=== PATIENT | female | born 1950 | race Caucasian/White ===

== ENCOUNTER 2023-03-09 21:11 | Emergency (ER) | payer BC, MEDICARE, SELFPAY ==
[~2023-03-09] VITALS: Ht 175.3 cm; Wt 109.1 kg
[2023-03-10 00:41] LABS: BASO % 0.5 % (0.0-1.0); EOS # 0.3 10^3/uL (0.0-0.5); EOS % 2.9 % (0.0-3.0); HEMATOCRIT 39.9 % (36.0-47.0); HEMOGLOBIN 13.3 g/dl (12.0-15.5); LYMPH # 2.8 10^3/uL (1.5-5.0); LYMPH % 32.2 % (24.0-44.0); MEAN CORPUSCULAR HGB CONC 33.3 g/dl (32.0-36.5); MONO # 0.8 10^3/uL (0.0-0.8); MONO % 9.5 % (2.0-8.0); NEUTROPHILS # 4.7 10^3/uL (1.5-8.5); NEUTROPHILS % 54.1 % (36.0-66.0); PLATELET COUNT, AUTOMATED 237 10^3/uL (150-450); RED BLOOD COUNT 4.03 10^6/uL (4.00-5.40); WHITE BLOOD COUNT 8.6 10^3/uL (4.0-10.0)
[2023-03-10 00:52] LABS: ERYTHROCYTE SEDIMENTATION RATE 9 mm/hr (0-30)
[2023-03-10 01:30] VITALS: BP 126/61; TEMP 97.8; O2SAT 96
== END 2023-03-10 03:17 | disposition home or self-care (01) ==
LOC: M ED 21:11 → EDBD 21:11 → M ED 03-10 03:17
DX: S80.12XA Contusion of left lower leg, initial encounter (principal); M79.662 Pain in left lower leg; R22.42 Localized swelling, mass and lump, left lower limb; Z88.6 Allergy status to analgesic agent; Z88.5 Allergy status to narcotic agent